=== PATIENT | female | born 1960 | race Caucasian/White ===

== ENCOUNTER → 2016-11-21 | Outpatient (CLI) | payer OTHER | LOC: MW.CHOBGYN 12:37 | PROVIDERS: ATTEND Nurse Practitioner Women's Health | DX: R20.0 Anesthesia of skin (principal); R20.2 Paresthesia of skin | CPT/HCPCS: 36415; 82607; 82746 ==

== ENCOUNTER → 2016-11-21 | Outpatient (CLI) | payer OTHER | LOC: MW.LAB 12:42 | PROVIDERS: ATTEND Plastic Surgery | DX: R53.83 Other fatigue (principal); R20.0 Anesthesia of skin; R20.2 Paresthesia of skin | CPT/HCPCS: 36415; 82607; 82670; 82746; 84403 ==

== ENCOUNTER 2019-05-28 09:47 | Emergency (ER) | payer OTHER ==
[2019-05-28] MEDS ORDERED: Ketorolac 60 MG/2 ML SDV IM ONE (10:20)
--- NOTE | 2019-05-28 10:26 | EDM.PDOC ---
ED HPI GENERAL MEDICAL PROBLEM - General Chief Complaint: Back Pain or Injury Stated Complaint: FELL ON LEFT ARM AND RIGHT SIDE PAIN Time Seen by Provider: 05/28/19 09:51 Source of Information: Reports: Patient History Limitations: Reports: No Limitations - History of Present Illness INITIAL COMMENTS - FREE TEXT/NARRATIVE: HISTORY AND PHYSICAL: History of present illness: Patient is a 58-year-old female presents to the ED today with concern of left shoulder and elbow pain and right rib pain after patient had fell out about 8 this morning. Patient states she was at the school walking outside when she had slipped and landed on her left shoulder. Patient states since then she's had pain moving the left shoulder and elbow as well as right-sided rib pain. Patient states she has not taken anything for her symptoms. Patient denies hitting her head or loss of consciousness. Patient denies any other symptoms or concerns. Patient denies fever, chills, chest pain, shortness of breath, or cough. Denies headache, neck stiff ness, change in vision, syncope, or near syncope. Denies nausea, vomiting, abdominal pain, diarrhea, constipation, or dysuria. Has not noted any blood in urine or stool. Patient has been eating and drinking appropriately. Review of systems: As per history of present illness and below otherwise all systems reviewed and negative. Past medical history: As per history of present illness and as reviewed below otherwise noncontributory. Surgical history: As per history of present illness and as reviewed below otherwise noncontributory. Social history: See social history for further information Family history: As per history of present illness and as reviewed below otherwise noncontributory. Physical exam: General: Patient is alert, oriented, and in no acute distress. Patient sitting comfortably on exam table. HEENT: Atraumatic, normocephalic, pupils equal and reactive bilaterally, negative for conjunctival pallor or scleral icterus, mucous membranes moist, TMs normal bilaterally, throat clear, neck supple, nontender, trachea midline. No drooling or trismus noted. No meningeal signs. No hot potato voice noted. Lungs: Clear to auscultation, breath sounds equal bilaterally. Patient does have mild pain to palpation of right sided ribs #9 through 11 on the posterior flank area without guarding. Heart: S1S2, regular rate and rhythm without overt murmur Abdomen: Soft, nondistended, nontender. Negative for masses or hepatosplenomegaly. Negative for costovertebral tenderness. Pelvis: Stable nontender. Genitourinary: Deferred. Rectal: Deferred. Skin: Intact, warm, dry. No lesions or rashes noted. Extremities: Negative for cords or calf pain. Neurovascular unremarkable. Patient has full range of motion of left digits, wrist, and elbow without pain or difficulty. Patient has limited range of motion of left shoulder due to pain. No obvious deformity of the left upper extremity. Patient has mild pain with palpation of the generalized left shoulder. There is a superficial abrasion over the left elbow area without bleeding. Radial pulses grossly intact and capillary refill less than 2 seconds of the left upper extremity. No obvious deformities of the complete spine. No pain, crepitus, or step-offs with palpation of complete spine and spinous process. Patient has full range of motion of complete spine without pain or difficulty. Patient full ROM of bilateral lower extremities and RUE. Neuro: Awake, alert, oriented. Cranial nerves II through XII unremarkable. Cerebellum unremarkable. Motor and sensory unremarkable throughout. Exam nonfocal. Notes: Discussed the importance for follow-up with primary care and orthopedics. Voices understanding and is agreeable to plan of care. Denies any further questions or concerns at this time. Diagnostics: Rib with chest x-ray, left shoulder, CBC, CMP, EKG, troponin (patient refused elbow XR and UA) Therapeutics: Shoulder sling, Toradol Prescription: Diclofenac, Flexeril Impression: Left shoulder injury Right sided rib injury Plan: 1. Rest, ice, elevate the affected extremity. You can apply ice 15 minutes on, 15 minutes off. 2. Tylenol as directed for pain management or discomfort. Take medication as prescribed 3. Follow up with the Orthopedic provider and your primary care provider as discussed. Return to the ED as needed and as discussed. Definitive disposition and diagnosis as appropriate pending reevaluation and review of above. Right Back Pain Score (Numeric/FACES): 4 Left Shoulder Pain Score (Numeric/FACES): 4 - Related Data Allergies Allergy/AdvReac Type Severity Reaction Status Date / Time No Known Allergies Allergy Verified 05/28/19 10:18 Home Meds: Home Meds Estradiol [Vagifem] 1 tab VAG ASDIRECTED 09/14/15 [History] Estrogens, Conjugated [Premarin] 0.9 mg PO DAILY 12/30/15 [History] Levothyroxine Sodium [Synthroid] 100 mcg PO DAILY 09/14/15 [History] Sertraline HCl 25 mg PO DAILY 09/14/15 [History] Cyclobenzaprine [Flexeril] 10 mg PO TID PRN #10 tab 05/28/19 [Rx] Diclofenac Sodium [Voltaren] 75 mg PO BIDMEALS PRN #15 tab.cr 05/28/19 [Rx] Past Medical History - Past Health History Medical/Surgical History: Denies Medical/Surgical History HEENT History: Reports: None Cardiovascular History: Reports: None Respiratory History: Reports: None Gastrointestinal History: Reports: None 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 Musculoskeletal History: Reports: None Neurological History: Reports: None Psychiatric History: Reports: Anxiety, Depression Endocrine/Metabolic History: Reports: Hypothyroidism Hematologic History: Reports: None Immunologic History: Reports: None Oncologic (Cancer) History: Reports: None Dermatologic History: Reports: None - Past Surgical History Head Surgeries/Procedures: Reports: None Female Surgical History: Reports: Section, Hysterectomy Social & Family History - Family History Family Medical History: Noncontributory - Tobacco Use Smoking Status *Q: Never Smoker - Recreational Drug Use Recreational Drug Use: No ED ROS GENERAL - Review of Systems Review Of Systems: ROS reveals no pertinent complaints other than HPI. ED EXAM, GENERAL - Physical Exam Exam: See Below (See dictation) Course - Vital Signs Last Recorded V/S: Last Vital Signs Temp 35.9 C 05/28/19 10:16 Pulse 74 05/28/19 10:16 Resp 18 05/28/19 10:16 BP 135/95 H 05/28/19 10:16 Pulse Ox 94 L 05/28/19 10:16 - Orders/Labs/Meds Orders: Active Orders 24 hr Category Date Time Status EKG Documentation Completion [RC] STAT Care 05/28/19 10:20 Active DME for Discharge [COMM] Stat Oth 05/28/19 11:47 Ordered Labs: Laboratory Tests 05/28/19 05/28/19 Range/Units 10:43 10:43 WBC 13.83 H (4.0-11.0) K/uL RBC 5.06 (4.30-5.90) M/uL Hgb 14.8 (12.0-16.0) g/dL Hct 44.8 (36.0-46.0) % MCV 88.5 (80.0-98.0) fL MCH 29.2 (27.0-32.0) pg MCHC 33.0 (31.0-37.0) g/dL RDW Std Deviation 43.5 (28.0-62.0) fl RDW Coeff of Chris 14 (11.0-15.0) % Plt Count 353 (150-400) K/uL MPV 9.40 (7.40-12.00) fL Neut % (Auto) 79.5 (48.0-80.0) % Lymph % (Auto) 11.9 L (16.0-40.0) % Craig % (Auto) 5.4 (0.0-15.0) % Eos % (Auto) 2.9 (0.0-7.0) % Baso % (Auto) 0.3 (0.0-1.5) % Neut # (Auto) 11.0 H (1.4-5.7) K/uL Lymph # (Auto) 1.7 (0.6-2.4) K/uL Craig # (Auto) 0.7 (0.0-0.8) K/uL Eos # (Auto) 0.4 (0.0-0.7) K/uL Baso # (Auto) 0.0 (0.0-0.1) K/uL Nucleated RBC % 0.0 /100WBC Nucleated RBCs # 0 K/uL Sodium 139 (136-145) mmol/L Potassium 4.5 (3.5-5.1) mmol/L Chloride 103 (98-107) mmol/L Carbon Dioxide 28.2 (21.0-32.0) mmol/L BUN 23 H (7.0-18.0) mg/dL Creatinine 0.7 (0.6-1.0) mg/dL Est Cr Clr Drug Dosing 72.47 mL/min Estimated GFR (MDRD) > 60.0 ml/min Glucose 96 (74-106) mg/dL Calcium 8.8 (8.5-10.1) mg/dL Total Bilirubin 0.3 (0.2-1.0) mg/dL AST 20 (15-37) IU/L ALT 32 (14-63) IU/L Alkaline Phosphatase 103 (46-116) U/L Troponin I < 0.050 (0.000-0.056) ng/mL Total Protein 7.5 (6.4-8.2) g/dL Albumin 3.8 (3.4-5.0) g/dL Globulin 3.7 (2.6-4.0) g/dL Albumin/Globulin Ratio 1.0 (0.9-1.6) Meds: Medications Discontinued Medications Generic Name Dose Route Start Last Admin Trade Name Freq PRN Reason Stop Dose Admin Ketorolac Tromethamine 60 mg 05/28/19 10:20 05/28/19 11:21 Toradol IM 05/28/19 10:21 60 mg ONETIME ONE Administration Departure - Departure Time of Disposition: 11:48 Disposition: Home, Self-Care 01 Clinical Impression: Rib injury Shoulder injury Qualifiers: Encounter type: initial encounter Laterality: left Qualified Code(s): S49.92XA - Unspecified injury of left shoulder and upper arm, initial encounter - Discharge Information Prescriptions: Cyclobenzaprine [Flexeril] 10 mg PO TID PRN #10 tab PRN Reason: Spasms Diclofenac Sodium [Voltaren] 75 mg PO BIDMEALS PRN #15 tab.cr PRN Reason: Pain Referrals: PCP,None [Primary Care Provider] - Forms: ED Department Discharge Additional Instructions: The following information is given to patients seen in the emergency department who are being discharged to home. This information is to outline your options for follow-up care. We provide all patients seen in our emergency department with a follow-up referral. The need for follow-up, as well as the timing and circumstances, are variable depending upon the specifics of your emergency department visit. If you don't have a primary care physician on staff, we will provide you with a referral. We always advise you to contact your personal physician following an emergency department visit to inform them of the circumstance of the visit and for follow-up with them and/or the need for any referrals to a consulting specialist. The emergency department will also refer you to a specialist when appropriate. This referral assures that you have the opportunity for follow-up care with a specialist. All of these measure are taken in an effort to provide you with optimal care, which includes your follow-up. Under all circumstances we always encourage you to contact your private physician who remains a resource for coordinating your care. When calling for follow-up care, please make the office aware that this follow-up is from your recent emergency room visit. If for any reason you are refused follow-up, please contact the [facility] Emergency Department at and asked to speak to the emergency department charge nurse. [facility] [address] [place] [address] [facility] [address] [place] [address] [facility] Professional Building [address] [facility] [place] [address] Dr Bacon, Orthopedist [facility] [address] [place] [address] Dr Koch - Dr Juárez - Dr Davis [facility] [address] [place] [address] [facility] [address] [place] [address] 1. Rest, ice, elevate the affected extremity. You can apply ice 15 minutes on, 15 minutes off. 2. Tylenol as directed for pain management or discomfort. Take medication as prescribed 3. Follow up with the Orthopedic provider and your primary care provider as discussed. Return to the ED as needed and as discussed. - My Orders Last 24 Hours: My Active Orders 05/28/19 10:20 EKG Documentation Completion [RC] STAT 05/28/19 11:47 DME for Discharge [COMM] Stat - Assessment/Plan Last 24 Hours: My Active Orders 05/28/19 10:20 EKG Documentation Completion [RC] STAT 05/28/19 11:47 DME for Discharge [COMM] Stat
[2019-05-28 11:31] LABS: BLOOD UREA NITROGEN,BUN 23 mg/dL (7.0-18.0); CARBON DIOXIDE,CO2 28.2 mmol/L (21.0-32.0); CHLORIDE,CL 103 mmol/L (98-107); GLUCOSE RANDOM 96 mg/dL (74-106); POTASSIUM,K 4.5 mmol/L (3.5-5.1); SODIUM,NA 139 mmol/L (136-145)
--- NOTE | 2019-05-28 11:45 | CR ---
IINDICATION: Fell; pain left shoulder. TECHNIQUE: Three view study left shoulder. FINDINGS: No evidence of fracture or dislocation. No bone or soft tissue abnormalities. IMPRESSION: Negative radiographic examination of the left shoulder. Dictated by Hair Irwin MD @ May 28 2019 11:41AM Signed by: Hair Irwin MD @05/28/2019 11:43:06 AM (Electronic Signature) MTDD
--- NOTE | 2019-05-28 11:45 | CR ---
INDICATION: Fell; pain left chest. COMPARISON: Chest radiograph June 23, 2018. TECHNIQUE: Three view study chest and left rib cage detail. Findings : Normal size cardiac silhouette. No evidence of fracture involving the left ribcage. No pneumothorax or pleural effusion. IMPRESSION: Negative chest and left rib cage detail. Dictated by Hair Irwin MD @ May 28 2019 11:43AM Signed by: Hair Irwin MD @05/28/2019 11:44:49 AM (Electronic Signature) MTDD
[2019-05-28 12:12] VITALS: BP 125/87; PULSE 78
== END 2019-05-28 12:12 | disposition home or self-care (01) ==
LOC: MW.ED 09:47
DX: S49.92XA Unspecified injury of left shoulder and upper arm, initial encounter (principal); S29.9XXA Unspecified injury of thorax, initial encounter; S50.312A Abrasion of left elbow, initial encounter; E03.9 Hypothyroidism, unspecified; F41.9 Anxiety disorder, unspecified; F32.9 Major depressive disorder, single episode, unspecified; Z79.899 Other long term (current) drug therapy; W01.0XXA Fall on same level from slipping, tripping and stumbling without subsequent striking against object, initial encounter
CPT/HCPCS: 36415; 71101; 73030; 80053; 84484; 85025; 93005; 96372; 99284; J1885

== ENCOUNTER 2019-08-05 08:46 | Day surgery (SDC) | payer OTHER ==
[~2019-08-05 08:46] MED LIST: Lactated Ringers 1,000 ML IV SCH; ceFAZolin 1 GM in Premix Bag 1 BAG IV ONE
--- NOTE | 2019-08-05 09:22 | PCM.PREANE ---
Preanesthetic Assessment - Anesthesia/Transfusion/Family Hx Anesthesia History: Prior Anesthesia Without Reaction Family History of Anesthesia Reaction: No Transfusion History: Prior Transfusion Without Reaction Intubation History: Unknown - Review of Systems General: No Symptoms Pulmonary: No Symptoms Cardiovascular: No Symptoms Gastrointestinal: No Symptoms Neurological: No Symptoms Other: Reports: None - Physical Assessment Height: 5 ft 3 in Weight: 74.843 kg ASA Class: 2 Mental Status: Alert & Oriented x3 Airway Class: Mallampati = 2 Dentition: Reports: Normal Dentition Thyro-Mental Finger Breadths: 2 Mouth Opening Finger Breadths: 3 ROM/Head Extension: Full Lungs: Clear to Auscultation, Normal Respiratory Effort Cardiovascular: Regular Rate, Regular Rhythm - Allergies Allergies/Adverse Reactions: Allergies Allergy/AdvReac Type Severity Reaction Status Date / Time No Known Allergies Allergy Verified 07/31/19 11:56 - Blood Blood Available: No - Anesthesia Plan Pre-Op Medication Ordered: None - Acknowledgements Anesthesia Type Planned: General Anesthesia Pt an Appropriate Candidate for the Planned Anesthesia: Yes Alternatives and Risks of Anesthesia Discussed w Pt/Guardian: Yes Pt/Guardian Understands and Agrees with Anesthesia Plan: Yes PreAnesthesia Questionnaire - Past Health History Medical/Surgical History: Denies Medical/Surgical History HEENT History: Reports: Other (See Below) Other HEENT History: wears glasses Cardiovascular History: Reports: None Respiratory History: Reports: None Gastrointestinal History: Reports: None Genitourinary History: Reports: None 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: Musculoskeletal History: Reports: None Neurological History: Reports: None Psychiatric History: Reports: Anxiety, Depression Endocrine/Metabolic History: Reports: Hypothyroidism Hematologic History: Reports: Blood Transfusion(s) Other Hematologic History: blood transfusion as an infant Immunologic History: Reports: None Oncologic (Cancer) History: Reports: None Dermatologic History: Reports: None - Past Surgical History Head Surgeries/Procedures: Reports: None HEENT Surgical History: Reports: None Cardiovascular Surgical History: Reports: None Respiratory Surgical History: Reports: None GI Surgical History: Reports: None Female Surgical History: Reports: Section, Hysterectomy Endocrine Surgical History: Reports: None Neurological Surgical History: Reports: None - SUBSTANCE USE Smoking Status *Q: Never Smoker - HOME MEDS Home Medications: Home Meds Cyclobenzaprine [Flexeril] 10 mg PO TID PRN #10 tab 05/28/19 [Rx] Diclofenac Sodium [Voltaren] 75 mg PO BIDMEALS PRN #15 tab.cr 05/28/19 [Rx] Estrogen Cream 1 applic TOP ASDIRECTED 07/31/19 [History] Levothyroxine Sodium [Synthroid] 150 mcg PO DAILY 07/31/19 [History] - CURRENT (IN HOUSE) MEDS Current Meds: Current Medications Lactated Ringer's (Ringers, Lactated) 1,000 mls @ 125 mls/hr IV ASDIRECTED OCHOA Discontinued Medications Cefazolin Sodium/Dextrose 1 gm (/ Premix) 50 mls @ 100 mls/hr IV ONETIME ONE Stop: 08/05/19 08:59
[2019-08-05] MEDS ORDERED: Midazolam 1 MG/ML 2 ML SDV IV ONE (09:36)
[2019-08-05] MEDS ORDERED: Propofol 200 MG/20 ML SDV IV ONE (09:36)
[2019-08-05] MEDS ORDERED: Rocuronium 100 MG/10 ML MDV IVPUSH ONE ×2 (09:36→09:37)
[2019-08-05] MEDS ORDERED: fentaNYL 250 MCG/5 ML SDV IVPUSH ONE (09:37)
[2019-08-05] MEDS ORDERED: Ondansetron 4 MG/2 ML SDV IVPUSH ONE (09:37)
[2019-08-05] MEDS ORDERED: Bupivacaine 0.25% 10 ML SDV ONE (10:02)
[2019-08-05] MEDS ORDERED: ceFAZolin 1 GM Vial IVPUSH ONE (10:25)
[2019-08-05] MEDS ORDERED: Sodium Chloride 0.9% 20 ML SDV IV ONE (10:25)
[2019-08-05] MEDS ORDERED: Ketamine 500 mg/10 ML MDV ONE (10:40)
[2019-08-05] MEDS ORDERED: Sodium Chloride 0.9% 20 ML ONE (10:40)
[2019-08-05] MEDS ORDERED: Dexamethasone 4 MG/ML 5 ML MDV IVPUSH ONE (11:04)
[2019-08-05] MEDS ORDERED: Sugammadex Sodium 200 MG/2 ML VIAL IV ONE (11:44)
[2019-08-05] MEDS ORDERED: HYDROmorphone 2 MG/ML Syringe ONE ×2 (12:12→14:01)
[2019-08-05] MEDS ORDERED: Glycopyrrolate 0.2 MG/ML SDV ONE (12:14)
[2019-08-05] MEDS ORDERED: Neostigmine Methylsulfate 1 MG/ML 5 ML Syringe ONE (12:14)
[2019-08-05] MEDS ORDERED: EPINEPHrine 1:10,000 1 MG/10 ML Syringe IVPUSH PRN (12:20)
[2019-08-05] MEDS ORDERED: 50% Dextrose in Water 50 ML Syringe IVPUSH PRN (12:20)
[2019-08-05] MEDS ORDERED: Albuterol 0.083% 2.5 MG/3 ML Neb Soln NEB PRN (12:20)
[2019-08-05] MEDS ORDERED: Atropine 0.1 MG/ML 10 ML Syringe IVPUSH PRN ×2 (12:20)
[2019-08-05] MEDS ORDERED: Naloxone 0.4 MG/ML Syringe IVPUSH PRN (12:20)
[2019-08-05] MEDS ORDERED: Ketorolac 30 MG/ML SDV ONE ×2 (12:22→14:26)
[2019-08-05] MEDS: fentaNYL 100 MCG/2 ML SDV IVPUSH PRN ×2 (13:00→13:05)
--- NOTE | 2019-08-05 13:10 | PCM.POSTAN ---
POST ANESTHESIA ASSESSMENT - MENTAL STATUS Mental Status: Alert, Oriented - VITAL SIGNS Vital Signs: Last Vital Signs Temp 97.2 F 08/05/19 12:30 Pulse 69 08/05/19 13:05 Resp 12 08/05/19 13:05 BP 140/88 08/05/19 13:05 Pulse Ox 97 08/05/19 13:05 - RESPIRATORY Respiratory Status: Respiratory Rate WNL, Airway Patent, O2 Saturation Stable - CARDIOVASCULAR CV Status: Pulse Rate WNL, Blood Pressure Stable - GASTROINTESTINAL GI Status: No Symptoms - PAIN Pain Score: 1 - POST OP HYDRATION Hydration Status: Adequate & Stable
[2019-08-05] MEDS ORDERED: oxyCODONE 5 MG Tab PO ONE (13:45)
[2019-08-05] MEDS ORDERED: HYDROmorphone 1 MG/ML Syringe IM ONE (13:47)
[2019-08-05] MEDS ORDERED: Ketorolac 15 MG/ML SDV IVPUSH ONE (14:21)
--- NOTE | 2019-08-05 14:48 | PCM48HPAN ---
Post Anesthesia Note - EVALUATION WITHIN 48HRS OF ANESTHETIC Vital Signs in Normal Range: Yes Patient Participated in Evaluation: Yes Respiratory Function Stable: Yes Airway Patent: Yes Cardiovascular Function Stable: Yes Hydration Status Stable: Yes Pain Control Satisfactory: Yes Nausea and Vomiting Control Satisfactory: Yes Mental Status Recovered: Yes Vital Signs: Last Vital Signs Temp 36.2 C 08/05/19 13:20 Pulse 60 08/05/19 14:00 Resp 14 08/05/19 14:00 BP 146/86 H 08/05/19 14:00 Pulse Ox 98 08/05/19 14:00 - COMMENTS/OBSERVATIONS Free Text/Narrative:: no anesthesia problems
[2019-08-05 14:56] VITALS: BP 145/82; PULSE 88
--- NOTE | 2019-08-07 08:24 | OR ---
SURGEON: PORTER BACON MD DATE OF PROCEDURE: 08/05/2019 The patient's surgery performed at [facility]. PREOPERATIVE DIAGNOSIS: Left shoulder impingement syndrome with rotator cuff tear. POSTOPERATIVE DIAGNOSES: Left shoulder impingement syndrome, acromial spur, subacromial bursitis, chronic massive retracted rotator cuff tear. PROCEDURES: Left shoulder: 1. Subacromial decompression, acromioplasty, bursectomy. 2. Repair of massive retracted rotator cuff tear. PRIMARY SURGEON: Porter Bacon MD CLEAT THROWER: AGUSTINA Fatima ESTIMATED BLOOD LOSS: 10 mL. INDICATION FOR SURGERY: This is a 58-year-old patient, who continued to have pain and weakness in the left shoulder secondary to above-mentioned diagnoses, needing above-mentioned procedure. All risks, complication, alternatives, and benefits were explained to the patient, and she agreed to proceed with the surgery. DESCRIPTION OF PROCEDURE: The patient was given general anesthesia. The patient was kept in the beachchair position. Left upper extremity was prepared using Betadine scrub, followed by paint, draped in the usual standard fashion. Anterior incision over the anterolateral aspect of the acromion was taken and extended distally approximately 2 cm length. The skin, superficial, deep fascia dissected around the same line. Total mass was elevated from the anterolateral aspect of the acromion and subacromial space exposed. There was a large anterior and inferior acromial spur. Therefore, anterior and inferior acromioplasty was carried out by routine standard fashion. Following that, subacromial space inspected. There was abundant inflamed subacromial bursa. This was excised. All these tissues were sent for Pathology. Following that, the rotator cuff was inspected. There was a chronic massive retracted rotator cuff tear with rolled up edge consistent with a chronic tear. The edge of the rotator cuff was then excised until bleeding edge was obtained. Bony trough created at the junction of the articular surface under greater tuberosity. The 3 absorbing bone suture anchor passed, and the leading edge of the rotator cuff brought down to the trough and appeared to in the neutral position. Repair was found to be sound and stable. Wound irrigated with normal saline with Betadine. Wound then closed in a layered fashion with deltoid muscle which was reattached, then attached back to the acromion using 1 Ethibond. Repair was found to be sound and stable. Wound then closed in layered fashion with 2-0 Vicryl to the deeper tissue and 5-0 Monocryl to the skin as subcuticular stitch. Wound then infiltrated with 30 mL of 0.25% Marcaine as postoperative analgesia. Wound was then covered with Adaptic, 4x4, ABD, and shoulder sling. The patient received 1 g of Ancef IV before coming to the procedure as prophylaxis against infection. There were no complications during or immediately following surgery. The patient recovered and transferred to recovery room in stable state. Excised tissue was sent for pathology. LUI SKELTON /[id number]
== END 2019-08-05 16:02 | disposition home or self-care (01) ==
LOC: MW.SDS 08:46
PROVIDERS: ATTEND Orthopaedic Surgery
DX: M75.102 Unspecified rotator cuff tear or rupture of left shoulder, not specified as traumatic (principal); M75.42 Impingement syndrome of left shoulder; M75.52 Bursitis of left shoulder; M75.82 Other shoulder lesions, left shoulder; E03.9 Hypothyroidism, unspecified; Z79.899 Other long term (current) drug therapy
CPT/HCPCS: 23130; 23412; A9270; J1170; J1885; J3010; J3490; J7120

== ENCOUNTER 2021-04-07 08:04 | Day surgery (SDC) | payer BC, OTHER ==
[~2021-04-07 08:04] MED LIST changes: +Glycopyrrolate 0.2 MG/ML SDV ONE; +Propofol 200 MG/20 ML SDV ONE; -ceFAZolin 1 GM in Premix Bag 1 BAG IV ONE
--- NOTE | 2021-04-07 08:38 | PCM.PREANE ---
Preanesthetic Assessment - Procedure Proposed Procedure: EGD, Colonoscopy - Anesthesia/Transfusion/Family Hx Anesthesia History: Prior Anesthesia Without Reaction Family History of Anesthesia Reaction: No Transfusion History: No Prior Transfusion(s) Intubation History: Unknown - Review of Systems General: No Symptoms Pulmonary: No Symptoms Cardiovascular: No Symptoms Gastrointestinal: No Symptoms (Prior h/o GERD but symptoms resolved and off meds now) Neurological: No Symptoms Other: Reports: Thyroid Problems (Hypothyroid controlled on synthroid) - Physical Assessment NPO Status Date: 04/05/21 NPO Status Time: 22:00 Vital Signs: Last Vital Signs Temp 97.2 F 04/07/21 08:27 Pulse 87 04/07/21 08:27 Resp 16 04/07/21 08:27 BP 124/78 04/07/21 08:27 Pulse Ox 96 04/07/21 08:27 Height: 5 ft 3 in Weight: 77.111 kg ASA Class: 2 Mental Status: Alert & Oriented x3 Dentition: Reports: Normal Dentition Thyro-Mental Finger Breadths: 3 Mouth Opening Finger Breadths: 2 ROM/Head Extension: Full Lungs: Clear to Auscultation, Normal Respiratory Effort Cardiovascular: Regular Rate, Regular Rhythm - Allergies Allergies/Adverse Reactions: Allergies Allergy/AdvReac Type Severity Reaction Status Date / Time No Known Allergies Allergy Verified 04/07/21 08:31 - Blood Blood Available: No - Acknowledgements Anesthesia Type Planned: General Anesthesia Pt an Appropriate Candidate for the Planned Anesthesia: Yes Alternatives and Risks of Anesthesia Discussed w Pt/Guardian: Yes Pt/Guardian Understands and Agrees with Anesthesia Plan: Yes PreAnesthesia Questionnaire - Past Health History Medical/Surgical History: Denies Medical/Surgical History HEENT History: Reports: Other (See Below) Other HEENT History: wears glasses Cardiovascular History: Reports: None Respiratory History: Reports: None Gastrointestinal History: Reports: GERD Genitourinary History: Reports: None 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: Musculoskeletal History: Reports: Fracture Other Musculoskeletal History: hx fx elbow Neurological History: Reports: None Psychiatric History: Reports: None Endocrine/Metabolic History: Reports: Hypothyroidism Hematologic History: Reports: None Immunologic History: Reports: None Oncologic (Cancer) History: Reports: None Dermatologic History: Reports: None - Past Surgical History Head Surgeries/Procedures: Reports: None HEENT Surgical History: Reports: None Cardiovascular Surgical History: Reports: None Respiratory Surgical History: Reports: None GI Surgical History: Reports: Colonoscopy Female Surgical History: Reports: Section, Hysterectomy, Salpingo- Oophorectomy Endocrine Surgical History: Reports: None Neurological Surgical History: Reports: None Musculoskeletal Surgical History: Reports: Shoulder Surgery Oncologic Surgical History: Reports: None Dermatological Surgical History: Reports: None - SUBSTANCE USE Tobacco Use Status *Q: Never Tobacco User - HOME MEDS Home Medications: Home Meds Levothyroxine Sodium [Synthroid] 175 mcg PO DAILY 08/29/20 [History] Cholecalciferol (Vitamin D3) [Vitamin D3] 1,000 units PO DAILY 04/03/21 [History] Multivitamin 1 tab PO DAILY 04/03/21 [History] Pantoprazole Sodium [Protonix] 40 mg PO DAILY 04/03/21 [History] - CURRENT (IN HOUSE) MEDS Current Meds: Current Medications Lactated Ringer's (Ringers, Lactated) 1,000 mls @ 125 mls/hr IV ASDIRECTED OCHOA Last Admin: 04/07/21 08:22 Dose: 125 mls/hr Documented by: Discontinued Medications Glycopyrrolate (Glycopyrrolate 0.2 Mg/Ml Sdv) Confirm Administered Dose 0.2 mg .ROUTE .STK-MED ONE Stop: 04/07/21 07:21 Lidocaine HCl (Lidocaine 1% 5 Ml Sdv) Confirm Administered Dose 5 ml .ROUTE .STK-MED ONE Stop: 04/07/21 07:21 Propofol (Propofol 200 Mg/20 Ml Sdv) Confirm Administered Dose 600 mg .ROUTE .STK-MED ONE Stop: 04/07/21 07:22
[2021-04-07] MEDS ORDERED: Lactated Ringers 1,000 ML IV SCH (11:15)
--- NOTE | 2021-04-07 11:19 | PCM.OPNOTE ---
- General Post-Op/Procedure Note Date of Surgery/Procedure: 04/07/21 Operative Procedure(s): Esophagogastroduodenoscopy with antral biopsy. Colonoscopy. Pre Op Diagnosis: Dysphagia. Rectal bleeding. Post-Op Diagnosis: Mild chronic gastritis. No evidence of colonic neoplasia. Anesthesia Technique: MAC (ASA II) Primary Surgeon: Zenon Santiago Condition: Good Free Text/Narrative:: DICTATION [id number] CPT CODE [id number]
--- NOTE | 2021-04-07 11:23 | PCM.POSTAN ---
POST ANESTHESIA ASSESSMENT - MENTAL STATUS Mental Status: Somnolent - VITAL SIGNS Vital Signs: Last Vital Signs Temp 97.2 F 04/07/21 08:27 Pulse 84 04/07/21 11:20 Resp 16 04/07/21 11:20 BP 99/46 L 04/07/21 11:20 Pulse Ox 92 L 04/07/21 11:20 - RESPIRATORY Respiratory Status: Respiratory Rate WNL, Airway Patent, O2 Saturation Stable - CARDIOVASCULAR CV Status: Pulse Rate WNL, Blood Pressure Stable - GASTROINTESTINAL GI Status: No Symptoms - POST OP HYDRATION Hydration Status: Adequate & Stable - OBSERVATIONS Free Text/Narrative:: Pt doing well post-op. VSS
--- NOTE | 2021-04-07 11:27 | PCM48HPAN ---
Post Anesthesia Note - EVALUATION WITHIN 48HRS OF ANESTHETIC Vital Signs in Normal Range: Yes Patient Participated in Evaluation: Yes Respiratory Function Stable: Yes Airway Patent: Yes Cardiovascular Function Stable: Yes Hydration Status Stable: Yes Pain Control Satisfactory: Yes Nausea and Vomiting Control Satisfactory: Yes Mental Status Recovered: Yes Vital Signs: Last Vital Signs Temp 97.2 F 04/07/21 08:27 Pulse 78 04/07/21 11:25 Resp 15 04/07/21 11:25 BP 101/52 L 04/07/21 11:25 Pulse Ox 92 L 04/07/21 11:25 - COMMENTS/OBSERVATIONS Free Text/Narrative:: Pt doing well post-op. No apparent anesthetic complications. Dr. Jerson Yi
[2021-04-07 12:08] VITALS: BP 110/66; PULSE 72
--- NOTE | 2021-04-08 13:10 | OR ---
SURGEON: Zenon Santiago M.D. DATE OF PROCEDURE: 04/07/2021 OPERATION PERFORMED: Esophagogastroduodenoscopy with biopsy. PRIMARY SURGEON: Zenon Santiago MD ANESTHESIA: MAC. ASA CLASSIFICATION: II. PREOPERATIVE DIAGNOSIS: Dysphagia. POSTOPERATIVE DIAGNOSES: Mild gastritis. No evidence of esophagitis. DESCRIPTION OF PROCEDURE: The patient was taken to the endoscopy room, positioned on the endoscopy table in the left lateral decubitus position. Time-out was called for appropriate identification of patient and procedure. Monitored anesthesia care was provided. The bite block was placed between the patient's teeth. The gastroscope was inserted through the bite block into the oropharynx and advanced without difficulty through the esophagus and stomach into the duodenum where examination was now carried out in a retrograde fashion. The duodenum showed no acute inflammatory changes or ulcerations. The stomach did show mild gastritis. No acute ulcerations were noted. No acute inflammatory changes were noted. The gastroscope was retroflexed to visualize the GE junction from below. No acute changes were noted. The gastroscope was then straightened. Antral biopsies were obtained to look for the presence of Helicobacter pylori. The gastroscope was then slowly withdrawn carefully visualizing the greater and lesser curvatures. Again, no inflammatory changes or acute ulcerations were noted. The GE junction was well defined and showed no acute inflammatory changes. The esophagus demonstrated good contractility. No mid or proximal lesions were identified. The vocal cords were briefly visualized as the scope was withdrawn and noted to move symmetrically. The gastroscope was then removed with the patient having tolerated this portion of the procedure well. Following colonoscopy, she was taken to recovery room in stable condition. TESSY / NAFISA /[id number]
--- NOTE | 2021-04-08 13:23 | OR ---
SURGEON: Zenon Santiago M.D. DATE OF PROCEDURE: 04/07/2021 OPERATION PERFORMED: Colonoscopy. PRIMARY SURGEON: Zenon Santiago MD. ANESTHESIA: MAC. ASA CLASSIFICATION: II. PREOPERATIVE DIAGNOSIS: Rectal bleeding. POSTOPERATIVE DIAGNOSIS: No evidence of neoplasia. DESCRIPTION OF PROCEDURE: With the patient having completed upper GI endoscopy, she was maintained in the left lateral decubitus position. The colonoscope was inserted into the rectum and advanced with minimal difficulty to the cecum. The cecum was identified by internal landmarks and external pressure. The colonoscope was retroflexed to visualize the ascending colon from below, then straightened and slowly withdrawn. The cecum, ascending colon, hepatic flexure, transverse colon, splenic flexure, descending colon, sigmoid colon, and rectum were very well visualized. No tumors, polyps, diverticula, or angiodysplastic changes were noted anywhere in the lower gastrointestinal tract. Once the colonoscope was withdrawn to the rectum, it was retroflexed to visualize the anal orifice from above. No tumors, polyps, or acute hemorrhoidal changes were noted. The colonoscope was then straightened, the rectum aspirated, and the colonoscope removed. The patient tolerated the procedure well and was taken to recovery room in stable condition. TESSY / NAFISA /[id number]
== END 2021-04-07 12:48 | disposition home or self-care (01) ==
LOC: MW.SDS 08:04
PROVIDERS: ATTEND Surgery
DX: K29.50 Unspecified chronic gastritis without bleeding (principal); B96.81 Helicobacter pylori [H. pylori] as the cause of diseases classified elsewhere; K62.5 Hemorrhage of anus and rectum; E03.9 Hypothyroidism, unspecified; R79.0 Abnormal level of blood mineral; Z79.890 Hormone replacement therapy; Z79.899 Other long term (current) drug therapy
CPT/HCPCS: 43239; 45378; J2704; J3490; J7120; 00813; 88305; 88342

== ENCOUNTER 2022-11-09 08:38 | Day surgery (SDC) | payer BC ==
[~2022-11-09 08:38] MED LIST changes: -Glycopyrrolate 0.2 MG/ML SDV ONE; -Propofol 200 MG/20 ML SDV ONE
[2022-11-09] MEDS ORDERED: fentaNYL 100 MCG/2 ML SDV ONE (09:05)
[2022-11-09] MEDS ORDERED: Lidocaine 2% 5 ML SDV ONE (09:05)
[2022-11-09] MEDS ORDERED: Propofol 200 MG/20 ML SDV ONE (09:05)
[2022-11-09] MEDS ORDERED: Lactated Ringers 1,000 ML IV SCH (10:30)
[2022-11-09 10:54] VITALS: BP 133/79; PULSE 64
== END 2022-11-09 10:50 | disposition home or self-care (01) ==
LOC: MW.SDS 08:38
PROVIDERS: ATTEND Surgery
DX: K29.50 Unspecified chronic gastritis without bleeding (principal); K44.9 Diaphragmatic hernia without obstruction or gangrene; K21.00 Gastro-esophageal reflux disease with esophagitis, without bleeding; E03.9 Hypothyroidism, unspecified; G47.00 Insomnia, unspecified; Z87.19 Personal history of other diseases of the digestive system; Z79.890 Hormone replacement therapy; Z79.899 Other long term (current) drug therapy
CPT/HCPCS: 43239; J2704; J3010; J7120; J3490